=== PATIENT | female | born 1995 | race African-American/Black ===

== ENCOUNTER 2017-08-02 13:37 | Inpatient (IN) | payer MEDICAID ==
[~2017-08-02] VITALS: Ht 175.3 cm; Wt 83.0 kg
[2017-08-02] MEDS ORDERED: LACTATED RINGERS 1,000 ML IV SCH ×2 (13:42→14:30)
[2017-08-02] MEDS ORDERED: METHYLERGONOVINE MALEATE 0.2 MG/ML IM PRN (13:45)
[2017-08-02] MEDS ORDERED: LIDOCAINE HCL 1% 20ML VIAL (Pyxis) INJ INFIL SCH (13:45)
[2017-08-02] MEDS ORDERED: NALOXONE HCL 0.4 MG/ML 1ML VIAL IM PRN (13:45)
[2017-08-02] MEDS ORDERED: BUTORPHANOL TARTRATE 2 MG/ML VIAL IV PRN (13:45)
[2017-08-02] MEDS ORDERED: CARBOPROST TROMETHAMINE 250 MCG/ML AMPUL IM PRN (13:45)
[2017-08-02] MEDS ORDERED: DEXT 5%/LR + PITOCIN 20UNITS/L 1,000 ML IV SCH ×2 (14:17→16:04)
[2017-08-02 14:21] LABS: CLARITY URINE CLEAR (CLEAR); COLOR URINE YELLOW (YELLOW); GLUCOSE URINE NEGATIVE (NEGATIVE); KETONES URINE NEGATIVE (NEGATIVE); LEUKOCYTE ESTERASE URINE TRACE (NEGATIVE); NITRITE URINE NEGATIVE (NEGATIVE); OCCULT BLOOD URINE NEGATIVE (NEGATIVE); PROTEIN URINE 2+ (NEGATIVE); UROBILINOGEN URINE 0.2 E.U./dL (0.2-1.0)
[2017-08-02 14:39] LABS: BASOPHILS % 0.4 % (0.0-2.0); EOSINOPHILS % 0.5 % (0.0-5.0); HEMATOCRIT. 34.9 % (36.0-48.0); HEMOGLOBIN. 11.9 g/dL (12.0-16.0); LYMPHOCYTES % 21.6 % (20.0-50.0); MEAN CORPUSCULAR HEMOGLOBIN 28.5 pg (28.0-32.0); MEAN CORPUSCULAR VOLUME 83.6 fL (81.0-99.0); MEAN PLATELET VOLUME 9.9 fl (7.4-10.4); MONOCYTES % 5.3 % (2.0-8.0); NEUTROPHILS % 72.2 % (40.0-76.0); PLATELET 227 x1000/uL (130-400); RED BLOOD CELL COUNT 4.17 mill/uL (4.2-5.4); RED CELL DISTRIBUTION WIDTH 15.2 % (11.6-14.6)
[2017-08-02 14:40] LABS: INR 0.9; PARTIAL THROMBOPLASTIN TIME 26.8 sec (23.4-31.0); PROTHROMBIN TIME 9.5 sec (9.4-11.6)
[2017-08-02 14:44] LABS: *AMPHETAMINES SCREEN URINE NEGATIVE (NEGATIVE); *BARBITURATES SCREEN URINE NEGATIVE (NEGATIVE); *BENZODIAZEPINES SCREEN URINE NEGATIVE (NEGATIVE); *COCAINE SCREEN URINE NEGATIVE (NEGATIVE); CANNABINOID URINE SCREEN NEGATIVE (NEGATIVE); METHADONE URINE SCREEN NEGATIVE (NEGATIVE); OPIATES URINE SCREEN NEGATIVE (NEGATIVE); PHENCYCLIDINE URINE SCREEN NEGATIVE (NEGATIVE)
[2017-08-02 15:12] LABS: HEPATITIS B SURFACE ANTIGEN NEGATIVE; RUBELLA IGG 68.2 IU/mL (4.99-10)
[2017-08-02] MEDS ORDERED: RHO(D) IMMUNE GLOBULIN 300 MCG/SYR IM PRN (16:15)
[2017-08-02] MEDS ORDERED: IBUPROFEN 400MG TABLET PO PRN (16:15)
[2017-08-02] MEDS ORDERED: LANOLIN OINT 0.25 GM TUBE TOP PRN (16:15)
[2017-08-02 16:55] VITALS: BP 120/69
[2017-08-02] MEDS: IBUPROFEN 800MG TABLET PO PRN ×2 (17:23→23:05)
[2017-08-02 17:30] VITALS: BP 128/59
[2017-08-02] MEDS: DOCUSATE SODIUM 100MG CAPSULE PO SCH (23:04)
[2017-08-03 00:10] VITALS: BP 118/65
[2017-08-03 08:27] LABS: BASOPHILS % 0.5 % (0.0-2.0); EOSINOPHILS % 1.3 % (0.0-5.0); HEMATOCRIT. 32.3 % (36.0-48.0); HEMOGLOBIN. 10.7 g/dL (12.0-16.0); LYMPHOCYTES % 22.2 % (20.0-50.0); MEAN CORPUSCULAR HEMOGLOBIN 28.3 pg (28.0-32.0); MEAN CORPUSCULAR VOLUME 85.2 fL (81.0-99.0); MEAN PLATELET VOLUME 10.1 fl (7.4-10.4); PLATELET 164 x1000/uL (130-400); RED BLOOD CELL COUNT 3.79 mill/uL (4.2-5.4); RED CELL DISTRIBUTION WIDTH 15.4 % (11.6-14.6)
[2017-08-03 08:30] VITALS: BP 114/59
[2017-08-03] MEDS: PRENATAL VIT/FE FUMARATE/FA TABLET PO SCH (11:05)
[2017-08-03 16:49] VITALS: BP 100/58
[2017-08-03] MEDS: IBUPROFEN 800MG TABLET PO PRN (18:47)
[2017-08-03] MEDS: DOCUSATE SODIUM 100MG CAPSULE PO SCH (20:35)
[2017-08-04 00:09] VITALS: BP 108/50
[2017-08-04] MEDS: IBUPROFEN 800MG TABLET PO PRN ×2 (00:09→08:53)
[2017-08-04 07:35] VITALS: BP 115/67
[2017-08-04] MEDS: PRENATAL VIT/FE FUMARATE/FA TABLET PO SCH (08:52)
[2017-08-04 08:53] VITALS: BP 115/67
== END 2017-08-04 11:30 | disposition home or self-care (01) | DRG 560 ==
LOC: OBSVTOIN 13:37 → L&D 13:37 → 7EST PP/OB 17:07
PROVIDERS: ADMIT Obstetrics & Gynecology; ATTEND Obstetrics & Gynecology
PROC: 10E0XZZ Delivery of Products of Conception, External Approach (ICD-10-PCS; principal; 2017-08-02 15:00)
DX: O48.0 Post-term pregnancy (principal); D62 Acute posthemorrhagic anemia; O99.02 Anemia complicating childbirth; Z37.0 Single live birth; Z3A.41 41 weeks gestation of pregnancy
CPT/HCPCS: 36415; 80305; 81001; 85025; 85610; 85730; 86592; 86703; 86762; 86850; 86900; 87340; J2590; J7120